=== PATIENT | male | born 1955 | race Caucasian/White ===

== ENCOUNTER 2019-12-12 09:54 | Day surgery (SDC) | payer MEDICARE ==
[~2019-12-12] VITALS: Ht 185.4 cm; Wt 102.0 kg
[2019-12-12] MEDS ORDERED: RIFA550T4 PO (10:32)
[2019-12-12] MEDS ORDERED: PROP10TA16 PO (10:32)
[2019-12-12] MEDS ORDERED: PANT40TA5 PO (10:32)
[2019-12-12] MEDS ORDERED: TAMS-11 PO (10:32)
[2019-12-12] MEDS ORDERED: SODIUM CHLORIDE 0.9% 1,000 ML IV SCH ×2 (11:00→12:38)
[2019-12-12 11:16] LABS: ANION GAP 4 mmol/L (5-15); CALCIUM 9.4 mg/dL (8.5-10.1); CHLORIDE 109 mmol/L (98-107); CREATININE 0.87 mg/dL (0.7-1.3)
[2019-12-12 11:29] LABS: MEAN CORPUSCULAR HEMOGLOBIN 31.5 pg (27.5-34.5); MEAN CORPUSCULAR HGB CONC 33.5 g/dL (33.2-36.2); MEAN PLATELET VOLUME 8.3 fL (7.4-10.4); PLATELET COUNT 57 x10^3/uL (130-400); RED BLOOD COUNT 4.79 x10^6/uL (4.38-5.82); RED CELL DISTRIBUTION WIDTH 14.7 % (9.4-14.8)
[2019-12-12 11:30] LABS: BASOPHILS # (AUTO) 0.02 x10^3/uL (0-0.1); BASOPHILS % (AUTO) 0 % (0-1); EOSINOPHILS # (AUTO) 0.15 x10^3/uL (0-0.4); EOSINOPHILS % (AUTO) 4 % (1-7); LYMPHOCYTES # (AUTO) 1.08 x10^3/uL (1-3.4); LYMPHOCYTES % (AUTO) 28 % (22-44); MD SCAN; MONOCYTES # (AUTO) 0.28 x10^3/uL (0.2-0.8); MONOCYTES % (AUTO) 7 % (2-9); NEUTROPHILS % (AUTO) 61 % (42-75)
[2019-12-12] MEDS ORDERED: FENTANYL PF 100 MCG/2ML ONE (11:39)
[2019-12-12] MEDS ORDERED: MIDAZOLAM 1 MG/ML, 5ML ONE (11:39)
[2019-12-12] MEDS ORDERED: VERAPAMIL 2.5 MG/ML, 2ML ONE (11:39)
[2019-12-12] MEDS ORDERED: HEPARIN 1,000 UNITS/ML, 10ML ONE (11:40)
[2019-12-12] MEDS ORDERED: LIDOCAINE-MPF 1%, 5ML ONE (11:40)
== END 2019-12-12 15:09 | disposition home or self-care (01) ==
LOC: CACL 09:54 → EDBD 11:45 → CACL 15:09
PROVIDERS: ATTEND Internal Medicine Cardiovascular Disease
DX: R55 Syncope and collapse (principal); Q24.8 Other specified congenital malformations of heart; I34.1 Nonrheumatic mitral (valve) prolapse; K75.81 Nonalcoholic steatohepatitis (NASH); G47.30 Sleep apnea, unspecified; J45.909 Unspecified asthma, uncomplicated; Z79.899 Other long term (current) drug therapy
CPT/HCPCS: 36415; 80048; 85025; 93458; 99156; C1769; C1894; J1644; J2250; J3010; Q9967